=== PATIENT | male | born 2000 | race Hispanic/Latino ===

== ENCOUNTER 2022-02-05 11:16 | Emergency (ER) | payer OTHER, SELFPAY | END 2022-02-05 13:52 | disposition home or self-care (01) | LOC: ERS 11:16 | DX: S89.202A Unspecified physeal fracture of upper end of left fibula, initial encounter for closed fracture (principal); S93.402A Sprain of unspecified ligament of left ankle, initial encounter; X50.9XXA Other and unspecified overexertion or strenuous movements or postures, initial encounter; Y92.22 Religious institution as the place of occurrence of the external cause ==

== ENCOUNTER 2022-04-30 03:02 | Emergency (ER) | payer SELFPAY | END 2022-04-30 04:05 | LOC: ERS 03:02 | DX: S30.1XXA Contusion of abdominal wall, initial encounter (principal); Y35.831A Legal intervention involving a conducted energy device, law enforcement official injured, initial encounter ==

== ENCOUNTER 2022-04-30 05:20 | Emergency (ER) | payer SELFPAY ==
[2022-04-30] MEDS ORDERED: Boostrix 0.5 ML (Tdap) VIAL (>/=7 yrs of age) ONE (06:26)
== END 2022-04-30 06:28 | disposition home or self-care (01) ==
LOC: ERS 05:20
DX: S40.012A Contusion of left shoulder, initial encounter (principal); Y35.831A Legal intervention involving a conducted energy device, law enforcement official injured, initial encounter; Z23 Encounter for immunization
CPT/HCPCS: 90471; 90715